=== PATIENT | female | born 1990 | race Caucasian/White ===

== ENCOUNTER 2017-10-16 21:59 | Emergency (ER) | END 2017-10-16 22:30 | disposition left against medical advice (07) | LOC: ER 21:59 | DX: M25.579 Pain in unspecified ankle and joints of unspecified foot (principal) ==

== ENCOUNTER 2017-10-16 22:32 | Emergency (ER) | payer BC ==
[~2017-10-16] VITALS: Ht 172.7 cm; Wt 65.3 kg
[2017-10-16 23:05] VITALS: BP 140/80
== END 2017-10-16 23:54 | disposition home or self-care (01) ==
LOC: FSED 22:32
DX: S93.492A Sprain of other ligament of left ankle, initial encounter (principal); X50.1XXA Overexertion from prolonged static or awkward postures, initial encounter
CPT/HCPCS: 99282